=== PATIENT | male | born 1950 | race Caucasian/White ===

== ENCOUNTER 2021-07-04 08:00 | Day surgery (SDC) | payer MEDICARE, BC ==
[~2021-07-04 08:00] MED LIST: Sodium Chloride 0.9% 1,000 ML IV SCH; Sodium Chloride 0.9% 10 ML Syringe FLUSH PRN
[2021-07-04] MEDS ORDERED: Midazolam 1 MG/ML 2 ML SDV IV ONE (08:01)
[2021-07-04] MEDS ORDERED: Midazolam 1 MG/ML 2 ML SDV ONE ×2 (08:36→09:40)
[2021-07-04] MEDS ORDERED: Propofol 200 MG/20 ML SDV ONE (08:36)
== END 2021-07-04 11:10 | disposition home or self-care (01) ==
LOC: KA.SDS 08:00
PROVIDERS: ATTEND Family Medicine
DX: Z12.11 Encounter for screening for malignant neoplasm of colon (principal); D12.4 Benign neoplasm of descending colon; E11.65 Type 2 diabetes mellitus with hyperglycemia; E78.00 Pure hypercholesterolemia, unspecified; K21.9 Gastro-esophageal reflux disease without esophagitis; R06.83 Snoring; R06.00 Dyspnea, unspecified; J30.9 Allergic rhinitis, unspecified; E66.09 Other obesity due to excess calories; F41.9 Anxiety disorder, unspecified; D50.9 Iron deficiency anemia, unspecified; M25.512 Pain in left shoulder; M25.511 Pain in right shoulder; G89.29 Other chronic pain; Z68.30 Body mass index [BMI] 30.0-30.9, adult; Z79.899 Other long term (current) drug therapy; Z88.0 Allergy status to penicillin; Z98.890 Other specified postprocedural states; Z20.822 Contact with and (suspected) exposure to COVID-19; Z86.010 Personal history of colon polyps
CPT/HCPCS: 00812; 82947; J2250; J2704; J7030